=== PATIENT | female | born 1940 | race Caucasian/White ===

== ENCOUNTER → 2016-07-26 | Day surgery (SDC) | payer MEDICARE, OTHER ==
[~2016-07-26] VITALS: Ht 152.4 cm; Wt 62.0 kg
[~2016-07-26] MED LIST: ATOR20TA38 PO; FERROUS SULFATE; LEVO50TA71 PO; LIDOCAINE 2% (SDV) 5 ML INJ ONE; OMEP20TA42 PO; OMEPRAZOLE; PROPOFOL 40 ML ONE; RANI300T PO
[2016-07-26 15:33] VITALS: Ht 152.4 cm; Wt 62.0 kg
[2016-07-26 15:52] VITALS: BP 150/75; PULSE 90; RESP 14
[2016-07-26 17:04] VITALS: BP 131/68; PULSE 62; RESP 17
--- NOTE | 2016-07-26 17:45 | GILP ---
DATE OF PROCEDURE: 07/26/2016 NAME OF PROCEDURES: 1. Esophagogastroduodenoscopy and biopsy. 2. Colonoscopy and biopsy. SURGEON: Kalen Sheldon MD PREOPERATIVE DIAGNOSES: 1. Abdominal pain. 2. Change in the bowel habit. 3. Rectal bleeding. POSTOPERATIVE DIAGNOSES: 1. Hiatal hernia. 2. Gastroesophageal reflux disease. 3. Gastritis with erosions. 4. Gastric mucosal biopsies were taken for Helicobacter pylori test. 5. Colonoscopy all the way to the cecum. 6. Sigmoid polyp was removed using the biopsy forceps. 7. Internal hemorrhoids. INDICATION FOR THE PROCEDURE: Ms. Renata Hernandez is a 76-year-old female patient who had u pper abdominal pain, not responding to therapy. She also noticed a change in the bowel habit and re ctal bleeding. The patient was scheduled for endoscopy and colonoscopy for further evaluation. The procedures and possible complications were well explained to the patient, she understood and con sented to the procedures. DESCRIPTION OF PROCEDURE: Under the influence of anesthesia, the gastroscope was carefully introduc ed into the esophagus and under direct vision, it was advanced to the stomach and through the pyloru s into the duodenal bulb and descending duodenum. FINDINGS: ESOPHAGUS: The patient had a hiatal hernia and gastroesophageal reflux disease. STOMACH: The patient had gastritis with erosions. Gastric mucosal biopsies were taken for H. pylor i test. DUODENUM: Normal. The colonoscope was carefully introduced in the rectum and under direct vision, it was advanced all the way to the cecum. FINDINGS: The patient had a small sigmoid colon polyp and it was removed using the biopsy forceps. She had internal hemorrhoids. She tolerated the procedures very well and there was no complication from the procedures. At the en d of the procedures, she was awake with stable vital signs and she was discharged home to the care o f her family. IMPRESSION: 1. Hiatal hernia. 2. Gastroesophageal reflux disease. 3. Gastritis with erosions. 4. Gastric mucosal biopsies were taken for Helicobacter pylori test. 5. Colonoscopy all the way to the cecum. 6. Small sigmoid colon polyp was removed using the biopsy forceps. 7. Internal hemorrhoids. PLAN: 1. Continue omeprazole and Zantac. 2. Await H. pylori test report. 3. Await histopathology report on the colon polyp. 4. Anusol-HC 2.5% cream at bedtime. Because of the patient's age, she will not need another screen ing colonoscopy. Dictated By: KALEN TORRES/SCOTT Conf#: [id number] DID#: [id number] CC: KALEN SHELDON MD;*EndCC*
--- NOTE | 2016-07-27 08:13 | CONS ---
DATE OF ADMISSION: 07/26/2016 DATE OF CONSULTATION: 07/13/2016 TYPE OF CONSULTATION: Preoperative gastroenterology consultation. Dear Dr. Call: I thank you very much for this kind referral. HISTORY OF PRESENT ILLNESS: Ms. Renata Baig is a 76-year-old female patient who has been refe rred to me for further evaluation of rectal bleeding. There is no past history of colon neoplasm. Her appetite has been good, and she is not losing any weight. Patient has change in the bowel habit with constipation. She has been taking MiraLax. She also complains of upper abdominal pain and ch ronic heartburn, not responding to therapy with omeprazole and Zantac. She is not taking any nonste roidal anti-inflammatory agents. There is no history of gallstones. She does not have any fever, c hills or jaundice. There is no history of liver disease. She is not a hypertensive or diabetic. S he does not have any heart disease or lung problem. She has history of renal stones. She has got h yperlipidemia. She also has hypothyroidism. SOCIAL HISTORY: She is a nonsmoker. She does not abuse alcohol. FAMILY HISTORY: Negative for gastrointestinal tract neoplasm. ALLERGIES: THERE IS NO HISTORY OF SIGNIFICANT DRUG ALLERGY. MEDICATIONS: 1. MiraLax 17 g dissolved in a glass of water p.o. daily. 2. Omeprazole 20 mg p.o. q.a.m. 3. Zantac 300 mg p.o. at bedtime. 4. Atorvastatin 20 mg p.o. q.a.m. 5. Levothyroxine 50 mcg p.o. daily a.m. 6. Ferrous sulfate 300 mg p.o. b.i.d. PHYSICAL EXAMINATION: VITAL SIGNS: She is 5 feet 2 inches tall and she weighs 139 pounds. BMI 25, blood pressure 117/82. HEART: Examination of the heart reveals normal first and second heart sounds. LUNGS: Clear. ABDOMEN: Soft without any distention. Liver and spleen are not palpable. There are no masses. Th ere is no focal tenderness. Normal bowel sounds are heard. RECTAL: Deferred per the patient's request. It will be done at the time of colonoscopy. CENTRAL NERVOUS SYSTEM: Does not reveal any focal neurological deficit. IMPRESSION: 1. Rectal bleeding. 2. Change in the bowel habit with constipation. 3. Upper abdominal pain and chronic heartburn, not responding to therapy with omeprazole and Zantac . 4. Hyperlipidemia. 5. Hypothyroidism. 6. History of renal stones. 7. History of surgery on the bladder. 8. HISTORY OF ALLERGY TO ASPIRIN. PLAN: 1. Continue omeprazole and Zantac. 2. Colonoscopy and upper endoscopy for further evaluation. 3. Because of the patient's age, she will need monitored anesthesia care. The procedures and possible complications are well explained to the patient. She understands and co nsents to the procedures. I thank you once again. With warmest personal regards, KALEN SHELDON MD Dictated By: KALEN TORRES/SCOTT Conf#: [id number] DID#: [id number]
== END | disposition home or self-care (01) ==
LOC: GIL 14:43
PROVIDERS: ATTEND Internal Medicine Gastroenterology
DX: R19.4 Change in bowel habit (principal); D12.3 Benign neoplasm of transverse colon; K44.9 Diaphragmatic hernia without obstruction or gangrene; K21.9 Gastro-esophageal reflux disease without esophagitis; K29.60 Other gastritis without bleeding; K64.8 Other hemorrhoids; E78.5 Hyperlipidemia, unspecified
CPT/HCPCS: 87081; 88305